=== PATIENT | female | born 1950 | race Native Hawaiian/Other Pacific Islander ===

== ENCOUNTER 2022-10-24 12:21 | Outpatient (CLI) | payer OTHER ==
[2022-10-24 12:43] LABS: PLATELET COUNT 370 K/uL (152-353)
[2022-10-24 12:55] LABS: POTASSIUM 4.5 mmol/L (3.6-5.2)
== END 2022-10-24 19:17 | disposition home or self-care (01) ==
LOC: LAB 12:21
PROVIDERS: ATTEND Physician Assistant Medical
DX: I10 Essential (primary) hypertension (principal); R41.0 Disorientation, unspecified; R53.1 Weakness; R42 Dizziness and giddiness
CPT/HCPCS: 36415; 80053; 85027

== ENCOUNTER 2022-10-31 12:13 | Outpatient (CLI) | payer OTHER | END 2022-10-31 19:34 | disposition home or self-care (01) | LOC: LAB 12:13 | PROVIDERS: ATTEND Physician Assistant Medical | DX: R30.0 Dysuria (principal) | CPT/HCPCS: 81000; 87077; 87086; 87088; 87186 ==